=== PATIENT | female | born 1995 | race Caucasian/White ===

== ENCOUNTER 2022-03-12 05:54 | Emergency (ER) | payer OTHER ==
[~2022-03-12 05:54] MED LIST: ANTIVERT 25MG T25 MG PO; BACTRIM DS TAB1 EACH PO; BACTROBAN NASAL1 G1; IBUPROFEN600 MG PO; MACROBID 100 M100 MG PO
[2022-03-12 06:38] LABS: RED BLOOD COUNT 4.72 M/UL (4.00-5.10); WHITE BLOOD COUNT 10.4 K/UL (4.5-11.0)
[2022-03-12 07:02] LABS: BUN/CREATININE RATIO 24 (0-10)
== END 2022-03-12 10:10 | disposition home or self-care (01) ==
LOC: ER1 05:54
PROVIDERS: Nurse Practitioner
DX: R55 Syncope and collapse (principal); F17.210 Nicotine dependence, cigarettes, uncomplicated
CPT/HCPCS: 70450; 71045; 80053; 80307; 81001; 82550; 82553; 84439; 84443; 84484; 84703; 85025; 85379; 93005; 93270; 99284; Q9967